=== PATIENT | female | born 1970 | race Caucasian/White ===

== ENCOUNTER 2021-03-09 18:20 | Emergency (ER) | payer OTHER ==
[~2021-03-09 18:20] MED LIST: BACLOFEN10 MG PO; BUSPIRONE HCL7.5 MG PO; MELOXICAM7.5 MG PO; OXYCODONE-ACET1 EAC1 PO; SIMVASTATIN20 MG PO; TOPIRAMATE50 MG PO; VENLAFAXINE HCL75 M1 PO; ZOFRAN4 MG SL
[2021-03-09 19:17] LABS: BASOPHIL 0.4 % (0-2); EOSINOPHIL 1.6 % (0-5); HCT 40.9 % (37.0-47.0); HGB 13.3 g/dl (12.5-16.0); LYMPHOCYTE 32.5 % (15-48); MCH 29.2 pg (25.0-31.0); MCHC 32.5 g/dL (32.0-36.0); MCV 89.9 fL (78.0-100.0); MONOCYTE 8.6 % (0-12); MPV 10.6 fL (6.0-9.5); NEUTROPHIL 55.6 % (41-80); NRBC 0; PLT 289 K/uL (150-400); RBC 4.55 M/uL (4.20-5.40); RDW 13.1 % (11.5-14.0); WBC 11.1 K/uL (4.0-10.5)
[2021-03-09 19:30] LABS: ALBUMIN 3.4 g/dL (3.4-5.0); BILIRUBIN - TOTAL 0.3 mg/dL (0.2-1.0); BUN/CREAT RATIO (CALC) 23.8 RATIO; CREATININE 0.8 mg/dL (0.51-0.95); GLOBULIN (CALCULATION) 3.1 g/dL; POTASSIUM 3.5 mmol/L (3.5-5.1); TOTAL PROTEIN 6.5 g/dL (6.4-8.2)
[2021-03-09 19:32] LABS: BILIRUBIN NEGATIVE (NEGATIVE); BLOOD 3+ Ery/uL (NEGATIVE); CLARITY CLOUDY (CLEAR); COLOR YELLOW (YELLOW); GLUCOSE (U) NORMAL (NORMAL); LEUKOCYTES NEGATIVE Leu/uL (NEGATIVE); NITRITE NEGATIVE (NEGATIVE); PROTEIN NEGATIVE (NEGATIVE); SPECIFIC GRAVITY 1.025 (1.001-1.030); UROBILINOGEN 0.2 mg/dL (0.2-1.0)
[2021-03-09 19:48] LABS: CALCIUM OXALATE CRYSTALS MODERATE; SQUAMOUS EPITHELIAL CELLS RARE; URINARY RBC 20-50
[2021-03-09] MEDS ORDERED: PERCOCET 5-3251 EACH PO (22:40)
[2021-03-09] MEDS ORDERED: ZOFRAN4 M1 PO (22:40)
== END 2021-03-09 22:45 | disposition home or self-care (01) ==
LOC: FER 18:20
PROVIDERS: Emergency Medicine
DX: N13.2 Hydronephrosis with renal and ureteral calculous obstruction (principal); Z86.718 Personal history of other venous thrombosis and embolism; Z90.49 Acquired absence of other specified parts of digestive tract; Z90.710 Acquired absence of both cervix and uterus; Z79.01 Long term (current) use of anticoagulants; Z79.899 Other long term (current) drug therapy
CPT/HCPCS: 36415; 80053; 81001; 83690; 85025; J1170; J2270; J2405

== ENCOUNTER 2021-03-11 00:52 | Emergency (ER) | payer OTHER ==
[~2021-03-11 00:52] MED LIST changes: +PERCOCET 5-3251 EACH PO; +ZOFRAN4 M1 PO
[2021-03-11 01:54] LABS: BILIRUBIN NEGATIVE (NEGATIVE); BLOOD 3+ Ery/uL (NEGATIVE); CLARITY CLEAR (CLEAR); COLOR YELLOW (YELLOW); GLUCOSE (U) NORMAL (NORMAL); LEUKOCYTES NEGATIVE Leu/uL (NEGATIVE); NITRITE NEGATIVE (NEGATIVE); PROTEIN NEGATIVE (NEGATIVE); SPECIFIC GRAVITY 1.025 (1.001-1.030)
[2021-03-11 02:00] LABS: BACTERIA TRACE; URINARY RBC TNTC
[2021-03-11 03:27] LABS: BASOPHIL 0.3 % (0-2); EOSINOPHIL 1.5 % (0-5); HCT 39.6 % (37.0-47.0); HGB 12.9 g/dl (12.5-16.0); LYMPHOCYTE 17.9 % (15-48); MCH 29.2 pg (25.0-31.0); MCHC 32.6 g/dL (32.0-36.0); MCV 89.6 fL (78.0-100.0); MONOCYTE 9.4 % (0-12); MPV 10.5 fL (6.0-9.5); NEUTROPHIL 70.4 % (41-80); NRBC 0; PLT 224 K/uL (150-400); RBC 4.42 M/uL (4.20-5.40); RDW 13.2 % (11.5-14.0); WBC 9.4 K/uL (4.0-10.5)
== END 2021-03-11 06:55 | disposition home or self-care (01) ==
LOC: FER 00:52
PROVIDERS: Emergency Medicine
DX: N13.2 Hydronephrosis with renal and ureteral calculous obstruction (principal); Z90.49 Acquired absence of other specified parts of digestive tract; Z90.710 Acquired absence of both cervix and uterus; Z98.51 Tubal ligation status; Z86.718 Personal history of other venous thrombosis and embolism; Z79.01 Long term (current) use of anticoagulants
CPT/HCPCS: 36415; 81001; 85025; J1170; J1885; J2405